=== PATIENT | male | born 1950 | race Caucasian/White ===

== ENCOUNTER 2019-06-05 01:14 | Emergency (ER) | payer MEDICARE, MEDICAID, SELFPAY ==
--- NOTE | ~2019-06-05 | CT_ITS ---
EXAMINATION: CT brain wo con DATE: 06/05/2019 02:08 INDICATION: Headache. TECHNIQUE: Computed tomography (CT) of the head was performed without intravenous contrast. The mA wa s adjusted according to patient size. Iterative reconstruction technique was employed. The dose-lengt h product was 605.33 mGy-cm. COMPARISON: Head CT 12/27/2017 FINDINGS: There are scattered areas of low attenuation in the cerebral white matter. There is no intr acranial hemorrhage, acute infarction, or abnormal intracranial mass lesion. The ventricles are alyssia l in size. There is mucosal thickening in the paranasal sinuses. The mastoid air cells are normal. Th e orbits are normal. IMPRESSION: 1. Stable moderate nonspecific cerebral white matter disease, which likely represents chronic small v essel ischemic disease. Reviewed, dictated and finalized at location A. IMPRESSION: 1. Stable moderate nonspecific cerebral white matter disease, which likely repr esents chronic small vessel ischemic disease.
--- NOTE | ~2019-06-05 | XR_ITS ---
EXAMINATION: XR chest 2V DATE: 06/05/2019 02:12 INDICATION: Cough. TECHNIQUE: Frontal and lateral views of the chest were obtained. COMPARISON: Chest single view 06/24/2016 FINDINGS: There is mild atelectasis in the mid and lower lung zones. No pleural effusion or pneumotho rax. The heart size is normal. IMPRESSION: 1. Mild atelectasis in the mid and lower lung zones. Reviewed, dictated and finalized at location A.
[2019-06-05 01:15] VITALS: BP 209/97; PULSE 100; RESP 22; TEMP 37.3; O2SAT 99
--- NOTE | 2019-06-05 01:20 | ECG_ITS ---
Measurements Intervals [place] Rate: 99 P: 33 MD: 144 QRS: -46 QRSD: 97 T: 22 QT: 315 QTc: 405 Interpretive Statements SINUS RHYTHM LEFT ANTERIOR FASCICULAR BLOCK VOLTAGE CRITERIA FOR LVH BASELINE ARTIFACT- I, II, III, AVR, AVL, AVF, V2 ABNORMAL ECG Electronically Signed On 06-05-2019 7:23:07 CDT by Kai Washington D.O.
[2019-06-05 01:23] VITALS: RESP 15
--- NOTE | 2019-06-05 01:30 | ED.GENADULT ---
HPI - General Adult General Chief complaint: Recheck/Abnormal Lab/Rx Stated complaint: htn Time Seen by Provider: 06/05/19 01:20 Source: patient and EMS Mode of arrival: EMS Limitations: no limitations History of Present Illness HPI narrative: Patient is a 68-year-old male with a history of diabetes who presents for evaluation of elevated blood pressure reading, elevated glucose readings and headache. Patient reportedly had a home health nurse check on him and his glucose was elevated although he does not remember what number it was. He reports that his blood pressure was elevated, and patient was experiencing a headache. The patient was told to come to the emergency department, thus he called EMS. Patient currently reports moderate, aching headache over his eyes. He reports sinus congestion as well as cough. Patient was seen at [facility] last week and advised to take Mucinex for sinusitis. Patient has a history of sinus congestion yearly when the seasons change, so he has been taking Mucinex, states his blood pressure may be elevated due to this. He does not take any antihypertensives at this time. Patient has not missed any doses of his diabetes medications. No vision changes, nausea or vomiting. He denies chest pain or shortness of breath. He reports productive cough. Related Data Home Medications Medication Instructions Recorded Confirmed No Home Medications 06/05/19 Allergies Allergy/AdvReac Type Severity Reaction Status Date / Time No Known Allergies Allergy Verified 06/05/19 01:28 Review of Systems Review of Systems: Narrative: CONSTITUTIONAL: Denies fever, chills, or sweats. EYES: Denies visual changes, redness, or discharge. ENT: Reports rhinorrhea, congestion CARDIOVASCULAR: Denies chest pain, palpitations, or edema. RESPIRATORY: Reports cough, denies shortness of breath GASTROINTESTINAL: Denies abdominal pain, nausea, vomiting, or diarrhea. GENITOURINARY: Denies dysuria or hematuria. SKIN: Denies rash or itching. MUSCULOSKELETAL: Denies back pain, joint pain, or myalgia. NEUROLOGIC: Reports headache, denies numbness or weakness PMFSH Past Medical History Medical History (Updated 06/05/19 @ 02:53 by Deborah Olsen MD) Borderline hypertension Diabetes Surgical History Surgical History (Updated 06/05/19 @ 01:47 by Deborah Olsen MD) H/O exploratory laparotomy Social History Social History (Updated 04/16/20 @ 01:47 by Deborah Olsen MD) Smoking status: Former smoker Alcohol intake: former Substance use: never Living arrangements: alone Gender identity (if verbalized by the patient): Male Exam Narrative: Exam Narrative: GENERAL: Awake, alert, conversant HEAD: Normocephalic, atraumatic. EYES: PERRLA and EOMI. ENT: Nares clear, no rhinorrhea or epistaxis. Mucous membranes moist. NECK: Supple. CHEST: No respiratory distress, breathing even and non labored HEART: Regular rate, sinus rhythm ABDOMEN:Non distended, non tender EXTREMITIES: Normal range of motion. No edema. SKIN: Warm, dry, no rash. NEURO:No focal deficits. Alert and oriented x3 Course Course Emergency Course: Patient presenting for evaluation of elevated glucose readings, blood pressure readings. At the time of initial assessment, ABCs are intact vital signs are notable for hypertension. Laboratory results showed no evidence of DKA. Anion gap is 10. Patient has elevated glucose, but not severely elevated. No elevation in troponin. Chest x-ray without acute cardiopulmonary abnormality. No elevation in troponin. I did give patient some hydralazine. His blood pressure downtrending appropriately. His blood pressure issues may be due to the cough and cold medication he has been taking. He has evidence of sinusitis on his CT scan, I suspect this is viral as patient is afebrile. A lot of his symptoms are likely due to the congestion he is a been experiencing. I spoke with the patient's
[2019-06-05 01:46] VITALS: BP 169/84; PULSE 98; RESP 21; O2SAT 97
[2019-06-05 01:54] LABS: Basophils Percent Auto 0.2 % (0.2-1.2); Eosinophils Absolute Auto 0.1 K/mm3 (0-0.3); Eosinophils Percent Auto 0.9 % (0-4.4); Hematocrit 46.9 % (42.0-52.0); Hemoglobin 15.9 g/dL (14.0-18.0); Immature Granulocyte Absolute 0.02 K/mm3 (0.00-0.031); Immature Granulocyte Percent A 0.2 % (0-0.5); Lymphocytes Absolute Auto 1.98 K/mm3 (0.9-3.2); Lymphocytes Percent Auto 23.3 % (18.3-44.2); Mean Corpuscular HGB Conc 33.9 g/dl (32-36); Mean Corpuscular Hemoglobin 28.6 pg (26-34); Mean Corpuscular Volume 84.4 fl (80-100); Mean Platelet Volume 11.5 fl (7.4-10.4); Monocytes Absolute Auto 0.7 K/mm3 (0.1-0.6); Monocytes Percent Auto 8.6 % (2.6-8.5); Neutrophils Absolute Auto 5.7 K/mm3 (1.3-6.7); Neutrophils Percent Auto 66.8 % (45.5-73.1); Platelet Count Result 214 k/mm3 (150-375); Red Blood Count 5.56 M/mm3 (4.6-6.20); Red Cell Distribution Width 12.7 % (11.5-14.5); White Blood Count 8.5 K/mm3 (4.5-10.0)
[2019-06-05 02:00] LABS: Glucose Point of Care 348 (65-105)
[2019-06-05 02:06] LABS: INR 0.9; Prothrombin Time 12.3 Seconds (11.1-14.7)
[2019-06-05 02:07] LABS: Partial Thromboplastin Time 30.5 SECONDS (22.3-36.8)
[2019-06-05 02:12] LABS: Alanine Aminotransferase 20 U/L (4-50); Albumin Level 4.8 g/dL (3.5-5.1); Alkaline Phosphatase 149 U/L (38-126); Aspartate Amino Transferase 28 U/L (17-59); Bilirubin,Total 0.6 mg/dL (0.2-1.3); Blood Urea Nitrogen 17 mg/dL (9-20); Carbon Dioxide 30 mmol/L (22-30); Chloride 97 mmol/L (98-107); Estimated CRCL calculation 60 ml/min; Estimated Glomerular Filt Rate > 60; Glucose 354 mg/dL (75-110); Potassium 4.2 mmol/L (3.4-5.0); Sodium 137 mmol/L (137-145)
[2019-06-05 02:22] LABS: Troponin I < 0.012 ng/mL (0.000-0.034)
[2019-06-05 02:34] VITALS: BP 155/86; PULSE 96; RESP 14; O2SAT 98
[2019-06-05 03:15] VITALS: BP 150/81; PULSE 97; RESP 18; TEMP 37.2; O2SAT 99
[2019-06-05 03:16] LABS: Glucose Point of Care 281 (65-105)
== END 2019-06-05 03:17 | disposition home or self-care (01) ==
PROVIDERS: Emergency Provider Emergency Medicine
DX: E11.65 Type 2 diabetes mellitus with hyperglycemia (principal); J01.10 Acute frontal sinusitis, unspecified; R03.0 Elevated blood-pressure reading, without diagnosis of hypertension; T48.4X5A Adverse effect of expectorants, initial encounter; Z87.891 Personal history of nicotine dependence; I44.4 Left anterior fascicular block; R94.31 Abnormal electrocardiogram [ECG] [EKG]
CPT/HCPCS: 36415; 70450; 71046; 80053; 82948; 84484; 85025; 85610; 85730; 93005; 99284